=== PATIENT | female | born 1955 | race Caucasian/White ===

== ENCOUNTER 2019-01-10 06:00 | Day surgery (SDC) | payer BC ==
[2019-01-03 10:56] VITALS: BMI 25.4
[2019-01-10] MEDS ORDERED: MIDAZOLAM HCL 2 MG/2 ML SINGLE DOSE VIAL ONE (06:52)
[2019-01-10] MEDS ORDERED: PROPOFOL 20 ML ONE ×3 (07:01)
[2019-01-10] MEDS ORDERED: EPINEPHrine 1:1,000 1 MG/1 ML - 30ML VIAL (INJECTION) ONE (07:03)
[2019-01-10] MEDS ORDERED: ceFAZolin SODIUM 1 GM VIAL ONE (08:25)
[2019-01-10] MEDS ORDERED: LABETALOL HCL 5 MG/1 ML (100MG/20 ML VIAL) ONE (08:39)
[2019-01-10] MEDS ORDERED: PROMETHAZINE HCL 25 MG/1 ML VIAL IVPUSH PRN (11:03)
[2019-01-10] MEDS ORDERED: ONDANSETRON 4 MG/2 ML VIAL IVPUSH PRN (11:03)
[2019-01-10] MEDS ORDERED: oxyCODONE HCL 5 MG TABLET PO PRN ×2 (11:03)
[2019-01-10 11:18] VITALS: BP 131/74; PULSE 79; TEMP 98
--- NOTE | 2019-01-11 11:19 | OP ---
DATE OF OPERATION: 01/10/2019 Done at [facility]. SURGEON: Bonny Baca MD SHIPMASTER: DARRYL Carrillo PREOPERATIVE DIAGNOSES: 1. Right shoulder rotator cuff tear. 2. Right shoulder biceps tendon tear. 3. Right shoulder adhesive capsulitis. 4. Right shoulder impingement syndrome. 5. Right shoulder acromioclavicular degenerative joint disease. 6. Right shoulder superior labral tear, anterior-posterior synovitis. POSTOPERATIVE DIAGNOSES: 1. Right shoulder rotator cuff tear. 2. Right shoulder biceps tendon tear. 3. Right shoulder adhesive capsulitis. 4. Right shoulder impingement syndrome. 5. Right shoulder acromioclavicular degenerative joint disease. 6. Right shoulder superior labral tear, anterior-posterior synovitis. PROCEDURE: 1. Right shoulder arthroscopy with rotator cuff repair (CPT code 94644). 2. Right shoulder arthroscopy with biceps tenodesis (CPT code 17056). 3. Right shoulder arthroscopy with lysis and resection of adhesions (CPT code 71963). 4. Right shoulder arthroscopy with subacromial decompression CPT code 11411). 5. Right shoulder arthroscopy with debridement (CPT code 50581). FINDINGS: 1. Evidence of previous superior labral repair. 2. Glenohumeral synovitis with adhesions and scar tissue. 3. Articular-sided scar tissues, supraspinatus. 4. Full-thickness supraspinatus anterior fibrous tear. 5. Type II acromion with anterolateral spurring. 6. Inferior spurs, clavicle, acromioclavicular joint disease. 7. Anterior and posterior labral fraying. 8. Extension of biceps tear with dislocation anteriorly on the biceps. REPAIR TYPE: Due to the dislocation, tearing and failure of the superior labral tear the biceps tendon was released and secured along the greater tuberosity over a bleeding bone bed. An interlocking mattress suture was placed around the tendon. This was secured to the bleeding bone bed. This was then released from the insertion along the superior labrum and debrided. From the bursal side a mattress suture was placed into the supraspinatus and secured to the bleeding bone bed, incorporated with the biceps tenodesis. PROCEDURE: Informed consent was obtained. The patient was taken to the operating room, where the upper extremity was prepped and draped in a sterile fashion. The shoulder was manipulated for a full range of motion. A posterior incision portal was made and directed to the glenohumeral joint. Under direct visualization, an anterior incision and portal was made. Extensive synovitis as well as chondral injuries throughout the glenohumeral joint were debrided and removed. Any identified labral injuries, including the superior labral tear, anterior and posterior, and anterior labrum torn portions, were removed as well. The rotator cuff was visualized and noted to have a full-thickness tear. The edges were debrided. The posterior incision portal was redirected to the subacromial space where a lateral incision portal was made. Excessive and thickened scar tissue noted throughout the subacromial space, including bursal and scar tissue, were removed. The type 2 acromion was converted into a flattened type 1 using a bur for subacromial decompression. The distal inferior spur at the distal clavicle was also debrided with the use of an accessory portal in the acromioclavicular joint. The edges of the rotator cuff were identified. Sutures were placed into the rotator cuff and secured using anchors through the greater tuberosity. Prior to securing, a bleeding bed was made using a small bur, creating a bleeding surface of the rotator cuff insertion. The shoulder was then drained, a single suture was placed in all portals, a sterile dressing was placed and the patient was transferred to the recovery room without complication. ADDENDUM: Please note the biceps tendon was released and secured as noted above. The PA listed above was present and assisted at surgery. Their presence was absolutely medically necessary for the completion of the procedure. They helped hold the arthroscopy, pass instruments (and implants when indicated) and the procedure could not have been completed without their assistance. BONNY BACA M.D. [id number]
--- NOTE | 2019-01-14 16:14 | PATH ---
Surgical Pathology Report Patient Name: AMEENA NEGRON Med. Rec. #: [id number] /Age/Gender: 1955 (Age: 63) / F Account: [id number] Location: [facility] AMBULATORY Taken: 01/10/2019 Received: 01/10/2019 Reported: 01/14/2019 Physicians: Brett Garcias M.D. Specimen(s) Received RIGHT SHOULDER SHAVINGS Clinical History Right shoulder rotator cuff tear Final Diagnosis RIGHT SHOULDER SHAVINGS: FRAGMENTS FIBROSYNOVIAL TISSUE WITH FIBROSIS AND DEGENERATIVE CHANGE. SEPARATE BONE FRAGMENTS AND SKELETAL MUSCLE WITH NO SIGNIFICANT PATHOLOGIC CHANGES. Electronically Signed Ciara Ratliff M.D. Gross Description Received in formalin, labeled "right shoulder shavings," is a 4.5 x 4.0 x 0.4 cm. aggregate of haywood-yellow soft tissue fragments. A fuels sales representative portion is submitted in one cassette. /01/13/2019 saudi01/13/2019
== END 2019-01-10 11:15 | disposition home or self-care (01) ==
LOC: FASU 06:00
PROVIDERS: ATTEND Orthopaedic Surgery
PROC: 0LS14ZZ Reposition Right Shoulder Tendon, Percutaneous Endoscopic Approach (ICD-10-PCS; 2019-01-10)
PROC: 0RNJ4ZZ Release Right Shoulder Joint, Percutaneous Endoscopic Approach (ICD-10-PCS; 2019-01-10)
PROC: 0RBJ4ZZ Excision of Right Shoulder Joint, Percutaneous Endoscopic Approach (ICD-10-PCS; 2019-01-10)
PROC: 0LQ14ZZ Repair Right Shoulder Tendon, Percutaneous Endoscopic Approach (ICD-10-PCS; principal; 2019-01-10 08:30)
DX: M75.121 Complete rotator cuff tear or rupture of right shoulder, not specified as traumatic (principal); M66.821 Spontaneous rupture of other tendons, right upper arm; M75.01 Adhesive capsulitis of right shoulder; M75.41 Impingement syndrome of right shoulder; M19.011 Primary osteoarthritis, right shoulder; M24.111 Other articular cartilage disorders, right shoulder; M65.811 Other synovitis and tenosynovitis, right shoulder
CPT/HCPCS: 88304-TC; 94760